=== PATIENT | male | born 1980 | race Hispanic/Latino ===

== ENCOUNTER 2018-10-25 14:03 | Emergency (ER) | payer SELFPAY ==
[~2018-10-25] VITALS: Ht 172.7 cm; Wt 129.3 kg
--- OUTSIDE RECORDS SUMMARY | 2018-10-25 14:05 | XMS REPORT | Clinical Summary ---
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 pedis, unspecified laterality Active atenolol (TENORMIN) 25 mg Take 1 tablet 0 tablet by mouth 2 9 times daily. Active Problems No known active problems Encounters Care Team Description Date Type Specialty Elevated bilirubin 09/23/2018 Ancillary Radiology Procedure 09/16/2018 Travel Testicular pain 08/26/2018 Ancillary Radiology Procedure 08/20/2018 Travel Sharon Robertson DO Elevated bilirubin (Primary Dx); Prediabetes; Flank pain 08/06/2018 Office Visit Family Practice Sharon Robertson, Prediabetes 08/06/2018 Orders Only Family Practice 08/01/2018 Travel Sharon Robertson DO Testicular pain (Primary Dx); Preventative health care; Tinea pedis, unspecified laterality 06/04/2018 Office Visit Family Practice 06/04/2018 Travel after 10/24/2017 Immunizations Name Administration Dates Next Due Tdap (Tetanus Toxoid, 06/04/2018 Reduced Diphtheria Toxoid And Acellular Pertussis, Absorbed) Social History Date Tobacco Use Types Packs/Day Years Used Never Smoker Smokeless Tobacco: Never Used Tobacco Cessation: Counseling Given: No Drinks/Week oz/Week Comments Alcohol Use Never Alcohol Habits Answer Date Recorded How often do you have a drink containing alcohol? Never 06/04/2018 How many drinks containing alcohol do you have on Not asked a typical day when you are drinking? How often do you have six or more drinks on one Not asked occasion? Food Insecurity Answer Date Recorded Within the past 12 months, you worried that your Never true 06/04/2018 food would run out before you got money to buy more. Within the past 12 months, the food you bought Never true 06/04/2018 just didn't last and you didn't have money to get more. Sex Assigned at Date Recorded Not on file Industry Job Start Date Occupation Not on file Not on file Not on file Travel End Travel History Travel Start No recent travel history available. Last Filed Vital Signs Reading Time Taken Comments Vital Sign 122/72 08/06/2018 2:56 PM CDT Blood Pressure 74 08/06/2018 2:56 PM CDT Pulse 37.1 C (98.7 F) 08/06/2018 2:56 PM CDT Temperature 18 08/06/2018 2:56 PM CDT Respiratory Rate - - Oxygen Saturation - - Inhaled Oxygen Concentration 127.6 kg (281 lb 6.4 oz) 08/06/2018 2:56 PM CDT Weight 167.6 cm (5' 6") 08/06/2018 2:56 PM CDT Height 45.42 08/06/2018 2:56 PM CDT Body Mass Index Plan of Treatment Care Team Description Date Type Specialty Marcelo SharonDO [address] [place] [id number] [phone] test results 11/12/2018 Office Visit Family Practice Health Maintenance Due Date Last Done Comments IMM Influenza Seasonal 12/01/2018 Oct to May (>/=19 yrs) Procedures Comments Procedure Name Priority Date/Time Associated Diagnosis U/S ABDOMEN Routine 09/23/2018 Elevated bilirubin 11:23 AM CDT DUPLEX DOPPLER ABD/PEL Routine 08/26/2018 Testicular pain VASCULAR STUDY, COMPLETE 2:55 PM CDT U/S SCROTUM Routine 08/26/2018 Testicular pain 2:55 PM CDT URINALYSIS Routine 08/06/2018 Flank pain 3:46 PM CDT URINALYSIS Routine 08/06/2018 Flank pain 3:46 PM CDT HIV-1/HIV-2 ROUTINE Routine 06/16/2018 Preventative health care SCREENING 9:54 AM CDT THYROID STIMULATING Routine 06/16/2018 Preventative health care HORMONE (TSH) 9:54 AM CDT LIPID PROFILE Routine 06/16/2018 Preventative health care 9:54 AM CDT CBC/DIFF Routine 06/16/2018 Preventative health care 9:54 AM CDT COMPREHENSIVE METABOLIC Routine 06/16/2018 Preventative health care PANEL 9:54 AM CDT HEMOGLOBIN A1C Routine 06/16/2018 Preventative health care 9:54 AM CDT after 10/24/2017 Results * U/S ABDOMEN (09/23/2018 11:23 AM CDT) Specimen Impressions Performed At IMPRESSION: [facility] Hepatomegaly and hepatic steatosis. No focal hepatic mass. Dictated By: Max Mckeon MD, 09/23/2018 11:23 AM I have reviewed the study and agree with the findings in this report. Signed By: Nate Rush MD, 09/23/2018 12:24 PM Narrative Performed At EXAM: Complete Abdominal Ultrasound SMS INDICATION: Elevated bilirubin COMPARISON: None. TECHNIQUE: Transverse and longitudinal images of the upper abdomen were obtained. FINDINGS: Liver: Size: 17.7 cm in the right midclavicular line, enlarged Appearance: Increased echogenicity, smooth contour Mass: No focal masses Spleen: Size: 11.1 cm in length, normal Echogenicity: Normal Mass: No focal masses Gallbladder: Stones/Sludge: None Wall: 0.2 cm Appearance: No pericholecystic fluid or hydrops. Sonographic Chapa's Sign: Negative Bile Ducts: Intrahepatic Ducts: No dilatation Extrahepatic Ducts: Common bile duct measures 0.4 cm, no dilatation Pancreas: Visualized portions of the pancreatic neck and proximal body are normal. Right Kidney: Size:11.9 cm Echogenicity:Normal Parenchymal thickness: Normal Collecting System:No hydronephrosis Stone:None Cyst/Mass: None Left Kidney: Size:11.4 cm Echogenicity:Normal Parenchymal thickness: Normal Collecting System:No hydronephrosis Stone:None Cyst/Mass: None Vessels: Aorta: Visualized portions are normal Inferior Vena Cava: Visualized portions are normal Main Portal Vein: 1.2 cm, normal size with hepatopetal flow. Free Fluid: No ascites or pleural effusion Procedure Note Interface, Rad/Mammog In - 09/23/2018 12:30 PM CDT EXAM: Complete Abdominal Ultrasound INDICATION: Elevated bilirubin COMPARISON: None. TECHNIQUE: Transverse and longitudinal images of the upper abdomen were obtained. FINDINGS: Liver: Size: 17.7 cm in the right midclavicular line, enlarged Appearance: Increased echogenicity, smooth contour Mass: No focal masses Spleen: Size: 11.1 cm in length, normal Echogenicity: Normal Mass: No focal masses Gallbladder: Stones/Sludge: None Wall: 0.2 cm Appearance: No pericholecystic fluid or hydrops. Sonographic Chapa's Sign: Negative Bile Ducts: Intrahepatic Ducts: No dilatation Extrahepatic Ducts: Common bile duct measures 0.4 cm, no dilatation Pancreas: Visualized portions of the pancreatic neck and proximal body are normal. Right Kidney: Size: 11.9 cm Echogenicity: Normal Parenchymal thickness: Normal Collecting System: No hydronephrosis Stone: None Cyst/Mass: None Left Kidney: Size: 11.4 cm Echogenicity: Normal Parenchymal thickness: Normal Collecting System: No hydronephrosis Stone: None Cyst/Mass: None Vessels: Aorta: Visualized portions are normal Inferior Vena Cava: Visualized portions are normal Main Portal Vein: 1.2 cm, normal size with hepatopetal flow. Free Fluid: No ascites or pleural effusion IMPRESSION IMPRESSION: Hepatomegaly and hepatic steatosis. No focal hepatic mass. Dictated By: Max Mckeon MD, 09/23/2018 11:23 AM I have reviewed the study and agree with the findings in this report. Signed By: Nate Rush MD, 09/23/2018 12:24 PM Performing Organization Address City/State/Zipcode Phone Number SMS * DUPLEX DOPPLER ABD/PEL VASCULAR STUDY, COMPLETE (08/26/2018 2:55 PM CDT) Specimen Impressions Performed At IMPRESSION: SMS 1. No evidence of testicular torsion. 2. Unremarkable scrotal ultrasound exam. Dictated By: Toby Jeffrey MD, 08/26/2018 3:19 PM I have reviewed the study and agree with the findings in this report. Signed By: Goldy Panchal MD, 08/26/2018 3:26 PM Narrative Performed At EXAM: Scrotal Ultrasound with Duplex SMS INDICATION: right testicular pain COMPARISON: None TECHNIQUE: Transverse and longitudinal images were obtained of the scrotum with grayscale imaging, color Doppler and spectral waveform analysis. FINDINGS: Right testis: Size: 4.3 x 2.4 x 2.9 cm, normal in size. Echogenicity: Normal Mass/Cysts: None Left testis: Size: 4.2 x 2.5 x 3.3 cm, normal in size. Echogenicity: Normal Mass/Cysts: None Epididymis: Appearance: Normal in size without increased vascularity. Mass/Cysts: Right epididymal head cyst measures 0.2 x 0.1 x 0.2 cm. Left epididymal head cyst measures 0.4 x 0.3 x 0.3 cm. Extratesticular: Masses: None Hydrocele: Trace bilateral hydrocele. Varicocele: None Inguinal canals: No inguinal hernia visualized. Doppler: Normal arterial flow to both testes and symmetrical flow on color Doppler evaluation is seen. No evidence of testicular torsion. Procedure Note Interface, Rad/Mammog In - 08/26/2018 3:31 PM CDT EXAM: Scrotal Ultrasound with Duplex INDICATION: right testicular pain COMPARISON: None TECHNIQUE: Transverse and longitudinal images were obtained of the scrotum with grayscale imaging, color Doppler and spectral waveform analysis. FINDINGS: Right testis: Size: 4.3 x 2.4 x 2.9 cm, normal in size. Echogenicity: Normal Mass/Cysts: None Left testis: Size: 4.2 x 2.5 x 3.3 cm, normal in size. Echogenicity: Normal Mass/Cysts: None Epididymis: Appearance: Normal in size without increased vascularity. Mass/Cysts: Right epididymal head cyst measures 0.2 x 0.1 x 0.2 cm. Left epididymal head cyst measures 0.4 x 0.3 x 0.3 cm. Extratesticular: Masses: None Hydrocele: Trace bilateral hydrocele. Varicocele: None Inguinal canals: No inguinal hernia visualized. Doppler: Normal arterial flow to both testes and symmetrical flow on color Doppler evaluation is seen. No evidence of testicular torsion. IMPRESSION IMPRESSION: 1. No evidence of testicular torsion. 2. Unremarkable scrotal ultrasound exam. Dictated By: Toby Jeffrey MD, 08/26/2018 3:19 PM I have reviewed the study and agree with the findings in this report. Signed By: Goldy Panchal MD, 08/26/2018 3:26 PM Performing Organization Address City/State/Zipcode Phone Number SMS * U/S SCROTUM (08/26/2018 2:55 PM CDT) Specimen Impressions Performed At IMPRESSION: SMS 1. No evidence of testicular torsion. 2. Unremarkable scrotal ultrasound exam. Dictated By: Toby Jeffrey MD, 08/26/2018 3:19 PM I have reviewed the study and agree with the findings in this report. Signed By: Goldy Panchal MD, 08/26/2018 3:26 PM Narrative Performed At EXAM: Scrotal Ultrasound with Duplex SMS INDICATION: right testicular pain COMPARISON: None TECHNIQUE: Transverse and longitudinal images were obtained of the scrotum with grayscale imaging, color Doppler and spectral waveform analysis. FINDINGS: Right testis: Size: 4.3 x 2.4 x 2.9 cm, normal in size. Echogenicity: Normal Mass/Cysts: None Left testis: Size: 4.2 x 2.5 x 3.3 cm, normal in size. Echogenicity: Normal Mass/Cysts: None Epididymis: Appearance: Normal in size without increased vascularity. Mass/Cysts: Right epididymal head cyst measures 0.2 x 0.1 x 0.2 cm. Left epididymal head cyst measures 0.4 x 0.3 x 0.3 cm. Extratesticular: Masses: None Hydrocele: Trace bilateral hydrocele. Varicocele: None Inguinal canals: No inguinal hernia visualized. Doppler: Normal arterial flow to both testes and symmetrical flow on color Doppler evaluation is seen. No evidence of testicular torsion. Procedure Note Interface, Rad/Mammog In - 08/26/2018 3:31 PM CDT EXAM: Scrotal Ultrasound with Duplex INDICATION: right testicular pain COMPARISON: None TECHNIQUE: Transverse and longitudinal images were obtained of the scrotum with grayscale imaging, color Doppler and spectral waveform analysis. FINDINGS: Right testis: Size: 4.3 x 2.4 x 2.9 cm, normal in size. Echogenicity: Normal Mass/Cysts: None Left testis: Size: 4.2 x 2.5 x 3.3 cm, normal in size. Echogenicity: Normal Mass/Cysts: None Epididymis: Appearance: Normal in size without increased vascularity. Mass/Cysts: Right epididymal head cyst measures 0.2 x 0.1 x 0.2 cm. Left epididymal head cyst measures 0.4 x 0.3 x 0.3 cm. Extratesticular: Masses: None Hydrocele: Trace bilateral hydrocele. Varicocele: None Inguinal canals: No inguinal hernia visualized. Doppler: Normal arterial flow to both testes and symmetrical flow on color Doppler evaluation is seen. No evidence of testicular torsion. IMPRESSION IMPRESSION: 1. No evidence of testicular torsion. 2. Unremarkable scrotal ultrasound exam. Dictated By: Toby Jeffrey MD, 08/26/2018 3:19 PM I have reviewed the study and agree with the findings in this report. Signed By: Goldy Panchal MD, 08/26/2018 3:26 PM Performing Organization Address [facility] Phone Number SMS * URINALYSIS (08/06/2018 3:46 PM CDT) Color Yellow Colorless, Straw, [facility] Clarity Clear Clear [facility] Spec [place], 1.013 1.001 - 1.035 [facility] pH, Ur 6.0 5.0 - 8.0 [facility] Protein, Ur Negative Negative mg/dL [facility] Glucose, Ur Negative Negative mg/dL [facility] Ketone, Ur Negative Negative mg/dL [facility] Bilirubin, Ur Negative Negative mg/dL [facility] Nitrite, Ur Negative Negative [facility] Leukocyte Negative Negative mg/dL [facility] Blood, Ur Negative Negative mg/dL [facility] Urobilinogen, <1.0 <1.0 EU/dL [facility] Specimen Urine Performing Organization Address [facility] Phone Number [facility] [address] [place] [address] * HIV-1/HIV-2 ROUTINE SCREENING (06/16/2018 9:54 AM CDT) HIV-1/HIV-2 Negative NEG [facility] 4 Specimen Performing Organization Address [facility] Phone Number [facility] 4 * HEMOGLOBIN A1C (06/16/2018 9:54 AM CDT) Hemoglobin A1c 5.9 4.3 - 6.1 % BT DIAGNOSTIC IMMUNOLOGY Est Average 122.6 mg/dL BT DIAGNOSTIC Gluc IMMUNOLOGY Specimen Blood Performing Organization Address [facility] Phone Number [facility] BT DIAGNOSTIC IMMUNOLOGY * COMPREHENSIVE METABOLIC PANEL(DBIL NOT INCLUDED) (06/16/2018 9:54 AM CDT) Albumin 4.4 4.2 - 5.5 g/dL BT [facility] 1 Calcium 8.8 8.6 - 10.3 mg/dL [facility] 1 CO2 27 21 - 31 mmol/L [facility] 1 Chloride 102 98 - 107 mmol/L BT [facility] 1 Creatinine 0.70 0.7 - 1.3 mg/dL BT [facility] 1 Glucose 101 70 - 110 mg/dL BT [facility] 1 Alkaline 77 34 - 104 U/L [facility] Phosphatase, S 1 Potassium 3.9 3.5 - 5.1 mmol/L BT [facility] 1 Sodium 139 136 - 145 mmol/L BT [facility] 1 ALT 41 7 - 52 U/L BT [facility] 1 AST (SGOT) 25 13 - 39 U/L BT [facility] 1 BUN 12 7 - 25 mg/dL BT [facility] 1 Bilirubin, 1.4 (H) 0.2 - 1.2 mg/dL BT [facility] Total 1 Protein, Total, 7.1 6.0 - 8.3 g/dL BT [facility] Serum 1 GFR, Estimated >60 mL/min/1.73 m2 BT MAIN-[facility] 1 eGFR If Africn >60 mL/min/1.73 m2 BT [facility] Am 1 Anion Gap 10 BT MAIN-STATION 1 Specimen Blood Performing Organization Address City/[facility] Phone Number [facility] BT [facility] 1 * TSH (06/16/2018 9:54 AM CDT) TSH 2.15 0.57 - 3.74 uIU/mL BT MAIN-STATION 1 Specimen Blood Performing Organization Address City/[facility] Phone Number [facility] BT [facility] 1 * LIPID PROFILE (06/16/2018 9:54 AM CDT) Cholesterol 143 mg/dL BT MAIN[facility]ATION Comment: 1 REFERENCE RANGE: Desirable: <200 mg/dL Borderline: 200-240 mg/dL High Risk: >240 mg/dL Triglyceride 91 <150 mg/dL BT MAIN-STATION Comment: 1 REFERENCE RANGE: Normal: <150 mg/dL Borderline High: 150-199 mg/dL High: 200-499 mg/dL Very High: >bu=612 mg/dL HDL 31 mg/dL BT MAIN-STATION Comment: 1 Increased CHD risk: <40 mg/dL Decreased CHD risk: >60 mg/dL LDL 94 mg/dL BT MAIN[facility]STATION Comment: 1 REFERENCE RANGE: Optimal: <100 mg/dL Near Optimal: 100-129 mg/dL Borderline High: 130-159 mg/dL High: 160-189 mg/dL Very High: >ba=063 mg/dL Specimen Blood Performing Organization Address City/State/Zipcode Phone Number [facility] BT MAIN-STATION 1 * CBC/DIFF (06/16/2018 9:54 AM CDT) WBC 8.8 4.5 - 12.0 K/uL BT MAIN-STATION 2 RBC 5.14 4.60 - 6.20 M/uL BT MAIN-STATION 2 Hemoglobin 15.0 14.0 - 18.0 g/dL BT MAIN-STATION 2 Hematocrit 46.0 40.0 - 54.0 % BT MAIN-STATION 2 MCV 90 82 - 92 fL BT MAIN-STATION 2 MCH 29.2 27.0 - 31.0 pg BT MAIN-STATION 2 MCHC 32.6 32.0 - 36.0 g/dL BT MAIN-STATION 2 RDW 41.2 35.1 - 43.9 fL BT MAIN-STATION 2 Platelets 269 150 - 400 K/uL BT MAIN-STATION 2 Mean Platelet 11.0 9.4 - 12.4 fL BT MAIN[facility] Volume 2 Percent NRBC 0.0 BT MAIN-STATION 2 Absolute NRBC 0.00 BT MAIN-STATION 2 Neutrophils 60.7 34.0 - 67.9 % BT MAIN-STATION 2 Lymphs 28.9 21.8 - 50.0 % BT MAIN-STATION 2 Monocytes 6.6 5.3 - 12.0 % BT MAIN-STATION 2 Eos 1.5 0.8 - 5.0 % BT MAIN-STATION 2 Basos 1.8 (H) 0.2 - 1.2 % BT MAIN-STATION 2 Immature 0.5 0.0 - 0.5 BT MAIN-STATION Granulocytes 2 Neutrophils 5.35 1.78 - 5.36 K/uL BT MAIN-STATION (Absolute) 2 Lymphs 2.55 1.32 - 3.57 K/uL BT MAIN-STATION (Absolute) 2 Monocytes(Absol 0.58 0.30 - 0.82 K/uL BT MA[facility] [place]) 2 Eos (Absolute) 0.13 0.04 - 0.54 K/uL BT MAIN-STATION 2 Baso (Absolute) 0.16 (H) 0.01 - 0.08 K/uL BT MAIN-STATION 2 Immature Grans 0.04 (H) 0.00 - 0.03 K/uL BT MAIN-STATION (Abs) 2 Specimen Blood Performing Organization Address City/State/Zipcode Phone Number MISYS BT MAIN-STATION 2 after 10/24/2017 Insurance Type Payer Benefit Subscriber ID Effective Phone Address Plan / Dates Group [employer] [facility] xxxxxx 2018-3 [address] [employer] FAMILY /[id number] [place], [place] [address] [employer] xxxxxx 2018-3 [address] /07/2019 [place] [address] (Self)
--- OUTSIDE RECORDS SUMMARY | 2018-10-25 14:06 | XMS REPORT ---
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 Allergies, Adverse Reactions, Alerts This patient has no known allergies or adverse reactions. Medications This patient has no known medications. Encounters Start Date/Time End Date/Time Encounter Type Admission Type Attending [facility] Care Department Encounter ID 2018-11-12 00:00:00 2018-11-12 00:00:00 Outpatient [facility] [id number] 2018-09-23 09:29:46 2018-09-23 09:29:46 Outpatient [facility] [id number] 2018-08-28 00:00:00 2018-08-28 00:00:00 Outpatient [facility] [id number] 2018-08-26 13:03:42 2018-08-26 13:03:42 Outpatient [facility] [id number] 2018-08-17 00:00:00 2018-08-17 00:00:00 Outpatient [facility] [id number] 2018-08-06 15:46:01 2018-08-06 15:46:01 Outpatient [facility] [id number] 2018-08-06 14:55:25 2018-08-06 14:55:25 Outpatient [facility] [id number] 2018-08-06 00:00:00 2018-08-06 00:00:00 Outpatient [facility] [id number] 2018-07-13 00:00:00 2018-07-13 00:00:00 Outpatient [facility] [id number] 2018-06-25 00:00:00 2018-06-25 00:00:00 Outpatient [facility] [id number] 2018-06-16 09:56:03 2018-06-16 09:56:03 Outpatient [facility] [id number] 2018-06-16 00:00:00 2018-06-16 00:00:00 Outpatient [facility] [id number] 2018-06-04 12:51:16 2018-06-04 12:51:16 Outpatient [facility] [id number]
[2018-10-25] MEDS ORDERED: ATENOLOL50 MG PO (14:22)
== END 2018-10-25 14:26 | disposition home or self-care (01) ==
LOC: FSED 14:03
DX: J02.9 Acute pharyngitis, unspecified (principal); E11.9 Type 2 diabetes mellitus without complications; I48.91 Unspecified atrial fibrillation; Z79.899 Other long term (current) drug therapy
CPT/HCPCS: 99282